=== PATIENT | male | born 1945 | race Two or more races ===

== ENCOUNTER 2023-07-01 18:00 | Emergency (ER) | payer OTHER ==
[~2023-07-01] VITALS: Ht 177.8 cm; Wt 87.1 kg
[2023-07-01] MEDS ORDERED: TAMS0.4C PO (18:35)
[2023-07-01 21:05] LABS: HEMOGLOBIN 15.7 g/dL (13-16.00); MEAN CELL VOLUME 93.8 fL (80.0-100.00); MEAN CORPUSCULAR HEMOGLOBIN 31.4 pg (27.00-32.0); MEAN CORPUSCULAR HGB CONC 33.5 g/dl (32.0-36.0); PLATELET COUNT 175 K/uL (150-450); RED BLOOD COUNT 5.01 M/uL (4.00-6.00); RED CELL DISTRIBUTION WIDTH 13.7 % (11.5-14.5)
== END 2023-07-01 21:57 | disposition home or self-care (01) ==
LOC: ER 18:01
PROVIDERS: General Practice
DX: J10.1 Influenza due to other identified influenza virus with other respiratory manifestations (principal); R53.81 Other malaise; Z20.822 Contact with and (suspected) exposure to COVID-19; Z88.5 Allergy status to narcotic agent
CPT/HCPCS: 36415; 71046; 96372; 99283; J0696; J2920; J2930

== ENCOUNTER 2023-07-07 08:54 | Outpatient (CLI) | payer OTHER ==
[~2023-07-07 08:54] MED LIST: TAMS0.4C PO
[2023-07-07 09:30] LABS: HEMATOCRIT 51.1 % (39.0-48.0); MEAN CELL VOLUME 94.4 fL (80.0-100.00); MEAN CORPUSCULAR HEMOGLOBIN 31.4 pg (27.00-32.0); MEAN CORPUSCULAR HGB CONC 33.3 g/dl (32.0-36.0); PLATELET COUNT 219 K/uL (150-450); RED BLOOD COUNT 5.41 M/uL (4.00-6.00); RED CELL DISTRIBUTION WIDTH 13.6 % (11.5-14.5)
[2023-07-07 09:45] LABS: URINE APPEARANCE Clear; URINE BILIRRUBIN Negative (NEGATIVE); URINE BLOOD Negative; URINE COLOR Yellow; URINE GLUCOSE Negative (NEGATIVE); URINE LEUKOCYTE Trace; URINE NITRATE Negative; URINE PROTEIN Negative (NEGATIVE); URINE UROBILINOGEN 0.2 E.U./dl
[2023-07-07 09:49] LABS: URINE BACTERIA 195.2 uL (0.0-1933); URINE EPITHELIAL CELLS 23.3 uL (0.0-38.8); URINE RBC 22.7 uL (0.0-20.8); URINE WBC 25.9 uL (0.0-23.2)
[2023-07-07 10:16] LABS: ALBUMIN 3.6 gm/dL (3.4-5.0); ALKALINE PHOSPHATASE 77 U/L (50-136); ALT/SGPT 39 U/L (12-78); ANION GAP 8 (10.0-20.0); AST/SGOT 13 U/L (15-37); BILIRUBIN TOTAL 0.47 mg/dL (0.3-1.2); BLOOD UREA NITROGEN 16 mg/dL (7-18); BUN CREA RATIO 18 (7.0-25.0); CALCIUM 9.1 mg/dL (8.5-10.1); CARBON DIOXIDE 28 mEq/L (21-32); CHLORIDE 108 mmol/L (98-107); CHOL HDL RATIO 2.7 (0-5.0); CHOLESTEROL 174 mg/dL (0-200); CREATININE SERUM 0.91 mg/dL (0.70-1.30); GLOBULINA 3.8 G/DL (2.4-3.5); GLUCOSE FASTING 89 mg/dL (65-100); HDL 65 mg/dl (40-60); LDL 85 mg/dl (0-130); OSMOLALITY SERUM 278 MOSM/KG (275-295); POTASSIUM 4.88 mEq/L (3.5-5.1); SODIUM 139 mmol/L (136-145); T4 FREE 0.88 NG/ML (0.76-1.46); TOTAL PROTEIN 7.4 gm/dL (6.4-8.2); TRIGLYCERIDES 119 mg/dL (0-150); VLDL 23 (0-39)
[2023-07-07 10:19] LABS: C-REACTIVE PROTEIN < 0.29 MG/DL (0.00-0.29)
[2023-07-07 10:53] LABS: URINE CRYSTALS FEW /HPF; URINE MUCUS MODERATE
[2023-07-10 10:11] LABS: % FREE PSA 9.7 % (.); free psa 1.15 ng/mL; total psa 11.9 ng/mL (0.0-4.0)
== END 2023-07-07 08:55 | disposition home or self-care (01) ==
LOC: LAB 08:54
PROVIDERS: ATTEND Specialist
DX: E03.8 Other specified hypothyroidism (principal); E11.69 Type 2 diabetes mellitus with other specified complication; M00.80 Arthritis due to other bacteria, unspecified joint; N39.9 Disorder of urinary system, unspecified; Z12.5 Encounter for screening for malignant neoplasm of prostate; D64.89 Other specified anemias; E11.21 Type 2 diabetes mellitus with diabetic nephropathy; Z13.220 Encounter for screening for lipoid disorders; J45.20 Mild intermittent asthma, uncomplicated

== ENCOUNTER 2024-02-02 07:37 | Outpatient (CLI) | payer OTHER ==
[2024-02-02 08:40] LABS: HEMATOCRIT 42.7 % (39.0-48.0); HEMOGLOBIN 14.4 g/dL (13-16.00); MEAN CELL VOLUME 92.8 fL (80.0-100.00); MEAN CORPUSCULAR HEMOGLOBIN 31.2 pg (27.00-32.0); MEAN CORPUSCULAR HGB CONC 33.6 g/dl (32.0-36.0); PLATELET COUNT 158 K/uL (150-450); RED CELL DISTRIBUTION WIDTH 14.8 % (11.5-14.5)
[2024-02-02 08:41] LABS: PH,URINE 5.5 (5.0-8.0); URINE APPEARANCE Clear; URINE BILIRRUBIN Negative (NEGATIVE); URINE BLOOD Small; URINE COLOR Yellow; URINE GLUCOSE Negative (NEGATIVE); URINE KETONE Trace (NEGATIVE); URINE LEUKOCYTE Trace; URINE NITRATE Negative; URINE PROTEIN Trace (NEGATIVE); URINE UROBILINOGEN 0.2 E.U./dl
[2024-02-02 08:42] LABS: URINE BACTERIA 161.2 uL (0.0-1933); URINE EPITHELIAL CELLS 22.8 uL (0.0-38.8); URINE RBC 35.5 uL (0.0-20.8); URINE WBC 65.2 uL (0.0-23.2)
[2024-02-02 09:33] LABS: ALBUMIN 3.3 gm/dL (3.4-5.0); BILIRUBIN TOTAL 0.52 mg/dL (0.3-1.2); CALCIUM 8.8 mg/dL (8.5-10.1); CHOL HDL RATIO 2.6 (0-5.0); CREATININE SERUM 0.83 mg/dL (0.70-1.30); FREE TRIODOTIRONINE 2.07 pg/ml (2.18-3.98); GFR 90.08; GLOBULINA 3.6 G/DL (2.4-3.5); POTASSIUM 3.98 mEq/L (3.5-5.1); T4 FREE 0.81 NG/ML (0.76-1.46); TOTAL PROTEIN 6.9 gm/dL (6.4-8.2); TSH 1.34 uIU/mL (0.358-3.74)
[2024-02-06 11:07] LABS: % FREE PSA 13.1 % (.); free psa 1.61 ng/mL; total psa 12.3 ng/mL (0.0-4.0)
== END 2024-02-02 07:47 | disposition home or self-care (01) ==
LOC: LAB 07:37
PROVIDERS: ATTEND Specialist
DX: E03.8 Other specified hypothyroidism (principal); E11.69 Type 2 diabetes mellitus with other specified complication; N39.9 Disorder of urinary system, unspecified; R07.89 Other chest pain; Z13.220 Encounter for screening for lipoid disorders; Z12.5 Encounter for screening for malignant neoplasm of prostate; E11.21 Type 2 diabetes mellitus with diabetic nephropathy; D64.89 Other specified anemias

== ENCOUNTER → 2024-05-05 06:50 | Outpatient (CLI) | payer OTHER ==
[2024-05-05 07:34] LABS: HEMATOCRIT 45.1 % (39.0-48.0); MEAN CORPUSCULAR HGB CONC 33.3 g/dl (32.0-36.0); PLATELET COUNT 207 K/uL (150-450); RED BLOOD COUNT 4.85 M/uL (4.00-6.00); RED CELL DISTRIBUTION WIDTH 16.1 % (11.5-14.5)
[2024-05-05 08:13] LABS: PH,URINE 6.5 (5.0-8.0); URINE APPEARANCE Clear; URINE BILIRRUBIN Negative (NEGATIVE); URINE BLOOD Negative; URINE COLOR Yellow; URINE GLUCOSE Negative (NEGATIVE); URINE KETONE Negative (NEGATIVE); URINE LEUKOCYTE Trace; URINE NITRATE Negative; URINE PROTEIN Negative (NEGATIVE); URINE UROBILINOGEN 0.2 E.U./dl
[2024-05-05 08:15] LABS: URINE BACTERIA 65.4 uL (0.0-1933); URINE EPITHELIAL CELLS 11.2 uL (0.0-38.8); URINE RBC 10.2 uL (0.0-20.8); URINE WBC 19.9 uL (0.0-23.2)
[2024-05-05 08:41] LABS: ALBUMIN 3.2 gm/dL (3.4-5.0); BILIRUBIN TOTAL 0.63 mg/dL (0.3-1.2); CALCIUM 9.2 mg/dL (8.5-10.1); CHOL HDL RATIO 2.3 (0-5.0); CREATININE SERUM 0.88 mg/dL (0.70-1.30); FREE TRIODOTIRONINE 2.02 pg/ml (2.18-3.98); GFR 84.2; GLOBULINA 3.7 G/DL (2.4-3.5); POTASSIUM 4.74 mEq/L (3.5-5.1); T4 FREE 0.86 NG/ML (0.76-1.46); TOTAL PROTEIN 6.9 gm/dL (6.4-8.2); TSH 0.844 uIU/mL (0.358-3.74)
[2024-05-05 08:49] LABS: C-REACTIVE PROTEIN 1.99 MG/DL (0.00-0.29)
[2024-05-05 09:15] LABS: URINE CAST 0.15 uL (0.0-1.40)
[2024-05-05 09:16] LABS: URINE EPITHELIAL CELLS 0-4 /HPF
[2024-05-06 10:10] LABS: % FREE PSA 11.7 % (.); free psa 2.08 ng/mL; total psa 17.8 ng/mL (0.0-4.0)
== END | disposition home or self-care (01) ==
LOC: LAB 06:50
PROVIDERS: ATTEND Specialist
DX: E03.8 Other specified hypothyroidism (principal); E11.69 Type 2 diabetes mellitus with other specified complication; D64.89 Other specified anemias; Z13.220 Encounter for screening for lipoid disorders; N39.9 Disorder of urinary system, unspecified; Z12.5 Encounter for screening for malignant neoplasm of prostate; E11.21 Type 2 diabetes mellitus with diabetic nephropathy

== ENCOUNTER 2025-03-18 07:59 | Outpatient (CLI) | payer OTHER ==
[2025-03-18 08:50] LABS: BASO % 0.7 % (0.1-1.2); EOS # 0.70 (0.04-0.54); EOS % 7.1 % (0.7-7.0); LYMPH # 2.10 (1.18-3.74); LYMPH % 21.2 % (19.3-53.1); MEAN PLATELET VOLUME 9.70 fl (9.4-12.4); MONO # 1.26 (0.24-0.82); NEUT # 5.77 (1.56-6.13); NEUT % 58.1 % (34.0-71.1); RED CELL DISTRIBUTION WIDTH 13.6 % (11.6-14.4)
[2025-03-18 08:56] LABS: MONO % 12.7 % (4.7-12.5)
[2025-03-18 10:21] LABS: ALT/SGPT 20.0 U/L (12-78); AST/SGOT 16.0 U/L (15-37); BILIRUBIN TOTAL 0.83 mg/dL (0.3-1.2); BILIRUBIN,CONJUGATED 0.2 mg/dL (0.0-0.2)
[2025-03-18 10:24] LABS: PROSTATIC SPECIFIC ANTIGEN 17.3 NG/ML (0.010-4.00)
== END 2025-03-18 08:06 | disposition home or self-care (01) ==
LOC: LAB 07:59
PROVIDERS: ATTEND Specialist
DX: N40.1 Benign prostatic hyperplasia with lower urinary tract symptoms (principal); N40.0 Benign prostatic hyperplasia without lower urinary tract symptoms; Z12.11 Encounter for screening for malignant neoplasm of colon; K63.89 Other specified diseases of intestine; K86.2 Cyst of pancreas; K86.89 Other specified diseases of pancreas; K75.81 Nonalcoholic steatohepatitis (NASH)

== ENCOUNTER 2025-03-19 09:22 | Outpatient (CLI) | payer OTHER | END 2025-03-19 09:23 | disposition home or self-care (01) | LOC: SONOGRAMA 09:22 → NUCLEAR 09:22 | PROVIDERS: ATTEND Specialist | DX: I82.0 Budd-Chiari syndrome (principal) ==